=== PATIENT | male | born 1980 | race African-American/Black ===

== ENCOUNTER 2023-10-07 23:32 | Emergency (ER) | payer BC, SELFPAY ==
[2023-10-07 23:32] VITALS: BMI 32.8
[2023-10-07 23:48] VITALS: BP 133/71
[2023-10-08] VITALS (7 sets, daily range): BP systolic 118–145; BP diastolic 66–86
[2023-10-08 00:38] LABS: % Basophils 0.3 % (0-2); % Eosinophils 0.1 % (0-6); % Immature Granulocytes 1.8 % (0-0.5); % Lymphocytes 11.3 % (20.5-51.1); % Monocytes 4.4 % (1.7-9.3); % Neutrophils 82.1 % (42.2-75.2); Absolute Basophils 0.1 10^3/uL (0-0.2); Absolute Immature Granulocytes 0.4 10^3/uL (0-0.05); Absolute Lymphocytes 2.4 10^3/uL (1.2-3.4); Absolute Monocytes 0.9 10^3/uL (0.1-0.6); Absolute Neutrophils 17.3 10^3/uL (1.4-6.5); Mean Corp Hgb Conc. 33.3 g/dL (33.0-37.0); Mean Corpuscular Hgb 29.6 pg (27.0-31.0); Mean Corpuscular Volume 88.8 fL (80.0-94.0); Mean Platelet Volume 9.8 fL (7.4-10.4); Nucleated Red Blood Cells % 0 % (-); Platelet Count 237 10^3/uL (130-400); Red Blood Cell Count 5.07 10^6/uL (4.70-6.10); Red Cell Dist. Width 12.7 % (11.5-14.5)
[2023-10-08 00:43] LABS: ALT (SGPT) 28 U/L (0-50); AST (SGOT) 35 U/L (17-59); Albumin 4.9 g/dl (3.5-5.0); Alkaline Phosphatase 80 U/L (38-126); Blood Urea Nitrogen 15 mg/dl (9-20); Carbon Dioxide 20 mmol/L (22-30); Chloride 101 mmol/L (98-107); Glucose 199 mg/dl (70-99); Sodium 138 mmol/L (135-145); Total Bilirubin 0.6 mg/dl (0.2-1.3); Total Protein 7.5 g/dl (6.3-8.2); eGFR > 60.00
[2023-10-08 00:50] LABS: Troponin I < 0.012 ng/ml
[2023-10-08 03:21] LABS: Urine Albumin Trace (Neg - Trace); Urine Bilirubin Negative (Negative); Urine Character Clear (Clear); Urine Color Amber; Urine Glucose Negative (Negative); Urine Ketone 1+ (Negative); Urine Leukocyte Negative (Negative); Urine Nitrite Negative (Negative); Urine Occult Blood 1+ (Negative); Urine Urobilinogen Negative (Neg - 1+)
[2023-10-08 03:36] LABS: Amphetamines Negative (Negative); Barbiturates Negative (Negative); Benzodiazepines Negative (Negative); Buprenorphine Negative (Negative); Cocaine Negative (Negative); Marijuana Negative (Negative); Methadone Negative (Negative); Methamphetamines Negative (Negative); Opiates Negative (Negative); Phencyclidine Negative (Negative); Tricyclic Antidepressants Negative (Negative); Urine Bacteria Few (Negative); Urine Red Blood Cell 0-2 /HPF (0-2); Urine Squamous Cell 0-2 /LPF (Few); Urine White Cell 0-2 /HPF (0-5)
--- NOTE | 2023-10-08 04:46 | ED.GENMED ---
Addendum entered and electronically signed by Abraham Rai MD 10/08/23 12:50:
1250... Patient doing well ambulated to the bathroom. Stable for discharge to follow-up
Addendum entered and electronically signed by Abraham Rai MD 10/08/23 11:06:
1105... Patient rechecked. Eyes closed and sleeping but easily arousable. Fully awake and alert. Knows his family his children's names etc. Will continue observation
Addendum entered and electronically signed by Abraham Rai MD 10/08/23 10:13:
1010.... CT scan negative. White count improved. Bandemia percent top normal. Per the patient ate some and had a relatively normal conversation with her. Only decision point currently would be whether to do a lumbar puncture for meningeal
encephalitis. With a likely reactive leukocytosis, no fever now no rash supple neck negative head CT and improvement of symptoms, joint decision with the is continued observation.
Addendum entered and electronically signed by Abraham Rai MD 10/08/23 09:58:
0925.... Reevaluated secondary to ongoing confusion. Patient ate a cannabis gummy at 6 PM. He has remained confused thought he had a son when he does not. states he is however improved from when his initial arrival.
Patient's eyes are closed but he is alert and answering questions. He is alert and oriented x 3. He knows the president. His neck is supple. Pupils are equal and reactive to light. Extraocular muscles intact. He is nonfocal. He has no rashes
warm and dry and perfusing well. Repeat temperature orally is 98.2.
Impression: Likely this is still related to his cannabis ingestion however given the length of time I feel he warrants CT scan. Will also repeat his CBC. This could theoretically be a meningeal encephalitis although unlikely.
Original Note:
History of Present Illness
<ARTIE Mayfield - Last Filed: 10/08/23 06:18>
General
Chief Complaint: Medication Reaction
Source: patient and significant other
Time Seen by Provider: 10/08/23 04:14
Travel History
Have you had any contact with someone who has COVID-19?: No
Do you have any symptoms of coronavirus? Fever > 100 degrees, chills, cough, shortness of breath, sore throat, loss of taste or smell, muscle aches, or headache?: No
History of Present Illness
History of Present Illness:
42 year old male presents w/ c/o dyspnea x6 hours. His significant other is by bedside. He reports dyspnea has now resolved. Patient admits taking one 10mg THC-Hemp gummy around 6pm yesterday. He reports feeling nauseous followed by one episode of
nonbloody vomiting. He also reports associated fatigue and room spinning sensation. He has relief with keeping his eyes shut. He denies CP, headache or diarrhea.
Review of Systems
<ARTIE Mayfield - Last Filed: 10/08/23 06:18>
Review of Systems
Allergies reviewed?: Yes
All Other Systems: Not applicable
Constitutional: Reports fatigue
EENT: Reports no symptoms
Respiratory: Reports trouble breathing (Now resolved )
Cardiac: Reports no symptoms
ABD/GI: Reports nausea and vomiting
: Reports no symptoms
Musculoskeletal: Reports no symptoms
Skin: Reports no symptoms
Neurological: Reports no symptoms
Endocrine: Reports no symptoms
Hematologic/Lymphatic: Reports no symptoms
Psychiatric: Reports no symptoms
Phy Exam
<ARTIE Mayfield - Last Filed: 10/08/23 06:18>
General Physical Exam
General Presentation: well appearing and no apparent distress
General Skin: warm and dry
General Habitus: normal
General Mental: appears intoxicated and other (Lethargic )
General Hydration: appears well hydrated
ENT Exam
ENT Exam: EOMI, pharynx normal, neck supple and normocephalic
Eye Exam
Eye Exam: PERRL, cornea clear and conjunctiva normal
Cardiovascular Exam
Cardiovascular Exam: regular rate/rhythm, no edema, no murmur and normal peripheral pulses
Pulmonary Exam
Pulmonary Exam: lungs clear, no respiratory distress, no rales, no crackles, no rhonchi, no stridor, no wheezing and no cough
Gastrointestinal Exam
Gastrointestinal Exam: normal bowel sounds, non tender, soft, no organomegaly, no pulsatile mass and non distended
Neurological Exam
Neurological Exam: alert, oriented x3, no motor deficits and speech normal
Musculoskeletal Exam
Musculoskeletal Exam: full ROM and no edema
Skin Exam
Skin Exam: normal color, warm/dry, no rash and no petechia
Psychiatric Exam
Psychiatric Exam: normal mood/affect
Course
<ARTIE Mayfield - Last Filed: 10/08/23 06:18>
Orders/Labs/Results
Orders:
Orders
10/07/23 23:54
Electrocardiogram (*1) Urgent
Reason for Study: Shortness of Breath
EKG- Treatment ONCE
Urinalysis Reflex To Culture Urgent
Date Specimen was Collected: 10/07/23
Time Specimen was Collected: 23:54
10/07/23 23:55
Complete Blood Count/With Diff Urgent
Comprehensive Metabolic Panel Urgent
Troponin I Urgent
10/08/23 03:11
Urine Drug Abuse Screen Urgent
Date Specimen was Collected: 10/08/23
Time Specimen was Collected: 03:05
Urine Microscopic Reflex Cult Urgent
10/08/23 04:31
0.9% Sodium Chloride 1000 ml [Nss] 1,000 ml IV BOLUS
Abnormal Lab Results
10/08/23 10/08/23
00:18 03:11
WBC 21.0 H 10^3/uL
(4.8-10.8)
Abs Immat Gran (auto) 0.4 H 10^3/uL
(0-0.05)
Absolute Neuts (auto) 17.3 H 10^3/uL
(1.4-6.5)
Absolute Monos (auto) 0.9 H 10^3/uL
(0.1-0.6)
Immature Gran % 1.8 H %
(0-0.5)
Neutrophils % 82.1 H %
(42.2-75.2)
Lymphocytes % 11.3 L %
(20.5-51.1)
Carbon Dioxide 20 L mmol/L
(22-30)
Glucose 199 H mg/dl
(70-99)
Urine Ketones 1+ A
(Negative)
Ur Occult Blood Reflex 1+ A
(Negative)
Urine Bacteria (Reflex) Few A
(Negative)
10/08/23 00:18
10/08/23 00:18
Vital Signs
Initial and Last Documented VS:
Initial Vital Signs
Temp Pulse Resp BP Pulse Ox
98.1 F 99 16 133/71 98
10/07/23 23:48 10/07/23 23:48 10/07/23 23:48 10/07/23 23:48 10/07/23 23:48
Last Documented Vital Signs
Temp Pulse Resp BP Pulse Ox
98.1 F 99 16 120/77 100
10/07/23 23:48 10/07/23 23:48 10/07/23 23:48 10/08/23 06:00 10/08/23 06:00
<Naz Ortiz DO - Last Filed: 10/08/23 06:40>
Orders/Labs/Results
Orders:
Orders
10/07/23 23:54
Electrocardiogram (*1) Urgent
Reason for Study: Shortness of Breath
EKG- Treatment ONCE
Urinalysis Reflex To Culture Urgent
Date Specimen was Collected: 10/07/23
Time Specimen was Collected: 23:54
10/07/23 23:55
Complete Blood Count/With Diff Urgent
Comprehensive Metabolic Panel Urgent
Troponin I Urgent
10/08/23 03:11
Urine Drug Abuse Screen Urgent
Date Specimen was Collected: 10/08/23
Time Specimen was Collected: 03:05
Urine Microscopic Reflex Cult Urgent
10/08/23 04:31
0.9% Sodium Chloride 1000 ml [Nss] 1,000 ml IV BOLUS
Abnormal Lab Results
10/08/23 10/08/23
00:18 03:11
WBC 21.0 H 10^3/uL
(4.8-10.8)
Abs Immat Gran (auto) 0.4 H 10^3/uL
(0-0.05)
Absolute Neuts (auto) 17.3 H 10^3/uL
(1.4-6.5)
Absolute Monos (auto) 0.9 H 10^3/uL
(0.1-0.6)
Immature Gran % 1.8 H %
(0-0.5)
Neutrophils % 82.1 H %
(42.2-75.2)
Lymphocytes % 11.3 L %
(20.5-51.1)
Carbon Dioxide 20 L mmol/L
(22-30)
Glucose 199 H mg/dl
(70-99)
Urine Ketones 1+ A
(Negative)
Ur Occult Blood Reflex 1+ A
(Negative)
Urine Bacteria (Reflex) Few A
(Negative)
10/08/23 00:18
10/08/23 00:18
Vital Signs
Initial and Last Documented VS:
Initial Vital Signs
Temp Pulse Resp BP Pulse Ox
98.1 F 99 16 133/71 98
10/07/23 23:48 10/07/23 23:48 10/07/23 23:48 10/07/23 23:48 10/07/23 23:48
Last Documented Vital Signs
Temp Pulse Resp BP Pulse Ox
98.1 F 99 16 120/77 100
10/07/23 23:48 10/07/23 23:48 10/07/23 23:48 10/08/23 06:00 10/08/23 06:00
<ARTIE Mayfield - Last Filed: 10/08/23 06:18>
MDM/Problems Addressed
MDM/Problems Addressed:
Marijuana induced intoxication, dehydration. Patient's labs are stable. Recent intake of one 10mg THC Hemp gummy that preceded symptoms. He is lethargic on exam and falling asleep mid sentences. Dyspnea has now resolved. Will start IV 0.9% NS.
<Naz Ortiz DO - Last Filed: 10/08/23 06:40>
*Pulse Oximetry
Patient hypoxic: no
*EKG
Interpreted by ED Provider?: Yes
Interpretation: normal
Comparison EKG: no comparison EKG present
Rate: normal
Rhythm: sinus
[place]: normal axis
Interval: normal interval
QRS Pattern: normal QRS
Ischemia: no ischemia
*Internet Sales Manager Interpretation
Rate: normal
Interpretation: normal
Rhythm: sinus
*Critical Care Note
Total Time (30-74mins, 75-104mins- exclusive of procedures): Not Applicable
ED Attending Note
<ARTIE Mayfield - Last Filed: 10/08/23 06:18>
-
Portions of this chart may have been created with voice recognition software.� Occasional wrong word or��sound alike� substitutions may have occurred due to the inherent limitations of voice recognition software.
<Naz Ortiz DO - Last Filed: 10/08/23 06:40>
ED Attending Note
Patient seen and examined by attending physician: Yes
I performed the substantive portion of visit, reviewed & personally made and approve the management plan that is documented in note by myself or JOSE.: Yes
I performed a history and physical exam of patient and discussed management with resident, I reviewed resident's note and agree with documented findings and plan of care.: Yes
ED Attending Note:
This is a 42-year-old gentleman with no significant past medical history who admits to consuming a 10 mg THC edible around 6 PM last night. He consumed this to help him relax. About an hour after consumption he developed palpitations, shortness of
breath, anxiety that seem to worsen accompanied with nausea and 1 episode of vomiting.
Symptoms persisted with moderate lethargy prompting ED visit via EMS.
Since arrival to the ED he has had no further palpitations nor nausea nor anxiety but significant lethargy, sleeping, difficulty opening his eyes.
No previous history of THC use, he denies other ingestions. He takes no medicines on a daily basis. No recent fall. He denies alcohol consumption as well.
GENERAL: 42-year-old gentleman appears his stated age he is moderately drowsy, opens his eyes briefly to verbal stimuli. Able to answer a few simple questions. Following a few simple commands. His is at bedside.
EYE: Pupils are 8 mm bilaterally, equal and reactive to light. anicteric
NECK: Supple, nontender, no meningismus, no significant adenopathy.
ENT: posterior pharynx is clear, oral mucosa is mildly dry. TM clear b/l, nares patent.
CARDIAC: Regular rate and rhythm. no murmur.
LUNGS: Clear breath sounds bilaterally, no acute respiratory distress, no wheezes/rales/rhonchi
ABDOMEN: Soft, nondistended, without focal tenderness, no r/g, no cvat. normoactive BS.
NEUROLOGICAL: Moderately drowsy, oriented x 3, no focal neuro deficits.
SKIN: Warm and dry, normal color, skin intact. No rash.
MUSCULOSKELETAL: No C/C/E. peripheral pulses are full and equal b/l. No palpable tenderness.
PSYCH: Normal and appropriate interaction.
I suspect adverse effects from THC/THC overdose with 10 mg.
Labs show moderately elevated white blood cell count, unremarkable chemistries save for random glucose of 199. UDS is negative consistent with recent/first-time THC consumption.
Symptoms are slowly improving. He is now more awake, sipping water.
Will initiate IV fluids and continue to observe.
He remains hemodynamically stable. Afebrile. No report of fall/head injury. At this point no indication for CT of the head.
Discharge Plan
Departure
Patient Disposition: Home (Routine Discharge)
Date of Disposition: 10/08/23
Time of Disposition: 06:39
Patient with high blood pressure during this ER visit?: No
Condition: Good
Discharge Problem:
Cannabis poisoning
Prescriptions:
No Action
No Current Medications
0
Referrals:
UNKNOWN - PT DOES,NOT KNOW [Family Provider] - Call in 1-3 days for appt
Activity Restrictions/Additional Instructions:
We recommend no further THC consumption.
Over the next several days stay well-hydrated on a daily basis.
Follow-up with your primary care physician for recheck as needed.
Interventions
Interventions:
*Risk Screen - Suicide Last Done: 10/07/23 23:51
*General Assessment Last Done: 10/08/23 05:16
*Neglect/Abuse Screening Last Done: 10/07/23 23:51
*ED COVID-19 Vaccine History Last Done: 10/07/23 23:51
ED-Skin Assessment Last Done: 10/08/23 05:16
ED- Pulmonary Assessment Last Done: 10/08/23 05:16
Discharge Date and Time
Print Language: MOHAWK
[2023-10-08] MEDS: NSS 1000 IV (05:30)
--- NOTE | 2023-10-08 09:25 | ED.GENMED ---
History of Present Illness
General
Chief Complaint: Medication Reaction
Time Seen by Provider: 10/08/23 04:14
Travel History
Have you had any contact with someone who has COVID-19?: No
Do you have any symptoms of coronavirus? Fever > 100 degrees, chills, cough, shortness of breath, sore throat, loss of taste or smell, muscle aches, or headache?: No
Course
Orders/Labs/Results
Orders:
Orders
10/07/23 23:54
Electrocardiogram (*1) Urgent
Reason for Study: Shortness of Breath
EKG- Treatment ONCE
Urinalysis Reflex To Culture Urgent
Date Specimen was Collected: 10/07/23
Time Specimen was Collected: 23:54
10/07/23 23:55
Complete Blood Count/With Diff Urgent
Comprehensive Metabolic Panel Urgent
Troponin I Urgent
10/08/23 03:11
Urine Drug Abuse Screen Urgent
Date Specimen was Collected: 10/08/23
Time Specimen was Collected: 03:05
Urine Microscopic Reflex Cult Urgent
10/08/23 04:31
0.9% Sodium Chloride 1000 ml [Nss] 1,000 ml IV BOLUS
10/08/23 09:23
CT Head W/o Iv Contrast Urgent
Comment:
Reason For Exam: Change in mental status
CBC/With Diff [Complete Blood Count/With Diff] Urgent
Abnormal Lab Results
10/08/23 10/08/23
00:18 03:11
WBC 21.0 H 10^3/uL
(4.8-10.8)
Abs Immat Gran (auto) 0.4 H 10^3/uL
(0-0.05)
Absolute Neuts (auto) 17.3 H 10^3/uL
(1.4-6.5)
Absolute Monos (auto) 0.9 H 10^3/uL
(0.1-0.6)
Immature Gran % 1.8 H %
(0-0.5)
Neutrophils % 82.1 H %
(42.2-75.2)
Lymphocytes % 11.3 L %
(20.5-51.1)
Carbon Dioxide 20 L mmol/L
(22-30)
Glucose 199 H mg/dl
(70-99)
Urine Ketones 1+ A
(Negative)
Ur Occult Blood Reflex 1+ A
(Negative)
Urine Bacteria (Reflex) Few A
(Negative)
10/08/23 00:18
Vital Signs
Initial and Last Documented VS:
Initial Vital Signs
Temp Pulse Resp BP Pulse Ox
98.1 F 99 16 133/71 98
10/07/23 23:48 10/07/23 23:48 10/07/23 23:48 10/07/23 23:48 10/07/23 23:48
Last Documented Vital Signs
Temp Pulse Resp BP Pulse Ox
98.1 F 99 16 126/76 98
10/07/23 23:48 10/07/23 23:48 10/07/23 23:48 10/08/23 08:00 10/08/23 08:00
Update Note
Update Note:
0925... I reassessed this patient who remains somewhat lethargic. Patient seemed confused to the prior to discharge. He asked about his son which they do not have. On medical review patient was fine until last evening. He ate a gummy which
she does not typically have at around 6 PM. Around 10 PM he had shortness of breath shaky vomiting. Brought in and evaluated observed. states he is clearly better than he was last evening but still relatively lethargic.
On exam patient has his eyes closed but is answering questions. He is nontoxic. Temperature was rechecked and is 98.0. Neck is supple. He is nonfocal. He is alert and oriented x 3 now. He knows the president he knows he does not have a son.
Impression change in mental status. This very well may be from the cannabis. However he has had symptoms slightly longer than I am comfortable at this time presuming is totally from the cannabis. We will repeat his CBC to see if this was all
reactive, get a head CT and reevaluate.
ED Attending Note
-
Portions of this chart may have been created with voice recognition software.� Occasional wrong word or��sound alike� substitutions may have occurred due to the inherent limitations of voice recognition software.
Discharge Plan
Departure
Patient Disposition: Home (Routine Discharge)
Date of Disposition: 10/08/23
Time of Disposition: 06:39
Patient with high blood pressure during this ER visit?: No
Condition: Good
Discharge Problem:
Cannabis poisoning
Prescriptions:
No Action
No Current Medications
0
Referrals:
UNKNOWN - PT DOES,NOT KNOW [Family Provider] - Call in 1-3 days for appt
Activity Restrictions/Additional Instructions:
We recommend no further THC consumption.
Over the next several days stay well-hydrated on a daily basis.
Follow-up with your primary care physician for recheck as needed.
Interventions
Interventions:
*Risk Screen - Suicide Last Done: 10/07/23 23:51
*General Assessment Last Done: 10/08/23 05:16
*Neglect/Abuse Screening Last Done: 10/07/23 23:51
ED- Fall Risk Assessment Last Done: 10/08/23 08:30
*ED COVID-19 Vaccine History Last Done: 10/07/23 23:51
ED-Skin Assessment Last Done: 10/08/23 05:16
ED- Pulmonary Assessment Last Done: 10/08/23 05:16
Discharge Date and Time
Print Language: BAHAM[place]
[2023-10-08 09:52] LABS: % Basophils 0.1 % (0-2); % Eosinophils 0.1 % (0-6); % Immature Granulocytes 0.5 % (0-0.5); % Lymphocytes 11.4 % (20.5-51.1); % Monocytes 4.5 % (1.7-9.3); % Neutrophils 83.4 % (42.2-75.2); Absolute Immature Granulocytes 0.1 10^3/uL (0-0.05); Absolute Lymphocytes 1.7 10^3/uL (1.2-3.4); Absolute Monocytes 0.7 10^3/uL (0.1-0.6); Absolute Neutrophils 12.6 10^3/uL (1.4-6.5); Hematocrit 40.4 % (39.0-52.0); Hemoglobin 13.8 g/dL (13.0-18.0); Mean Corp Hgb Conc. 34.2 g/dL (33.0-37.0); Mean Corpuscular Hgb 29.5 pg (27.0-31.0); Mean Corpuscular Volume 86.3 fL (80.0-94.0); Mean Platelet Volume 9.5 fL (7.4-10.4); Nucleated Red Blood Cells % 0 % (-); Platelet Count 221 10^3/uL (130-400); Red Blood Cell Count 4.68 10^6/uL (4.70-6.10); Red Cell Dist. Width 12.8 % (11.5-14.5); White Blood Cell Count 15.1 10^3/uL (4.8-10.8)
== END 2023-10-08 13:07 | disposition home or self-care (01) ==
LOC: EMR 23:32
PROVIDERS: Emergency Medicine; EMERGENCY PHYSICIAN Emergency Medicine
DX: T40.711A Poisoning by cannabis, accidental (unintentional), initial encounter (principal)
CPT/HCPCS: 99285; 96360; 70450; 80053; 80306; 81003; 81015; 84484; 85025; 93005

== ENCOUNTER → 2023-12-09 11:23 | Outpatient (REF) | payer BC, SELFPAY | LOC: RAD 11:23 | PROVIDERS: ATTENDING PHYSICIAN Internal Medicine | DX: M25.512 Pain in left shoulder (principal) | CPT/HCPCS: 73030 ==

== ENCOUNTER → 2025-04-16 12:23 | Outpatient (REF) | payer BC, SELFPAY | LOC: PAVMRI 12:23 | PROVIDERS: ATTENDING PHYSICIAN Internal Medicine | DX: M25.512 Pain in left shoulder (principal) | CPT/HCPCS: 73221 ==